=== PATIENT | female | born 1970 | race American Indian/Alaskan Native ===

== ENCOUNTER 2019-03-25 05:56 | Observation (INO) | payer BC, OTHER ==
--- NOTE | 2019-03-18 09:56 | Anesthesia Consultation ---
Anesthesia Consult and Med Hx Date of service: 03/25/19 - Airway Anesthetic Teeth Evaluation: Good ROM Head & Neck: Adequate Mental/Hyoid Distance: Adequate Mallampati Class: Class II Intubation Access Assessment: Good - Pre-Operative Health Status ASA Pre-Surgery Classification: ASA2 Proposed Anesthetic Plan: General Nerve Block: TAP - Pulmonary Hx Smoking: No (Can climb two flights of stairs) Hx Asthma: No - Cardiovascular System Hx Hypertension: Yes (Treated x 2mos) - Central Nervous System Hx Seizures: No Hx Psychiatric Problems: No - Gastrointestinal Hx Gastroesophageal Reflux Disease: No - Endocrine Hx Renal Disease: No Hx Non-Insulin Dependent Diabetes: No - Hematic Hx Anemia: Yes Hx Sickle Cell Disease: No - Other Systems Hx Alcohol Use: Yes (Occas) Hx Cancer: No Hx Obesity: Yes (BMI=38)
[2019-03-18 10:06] LABS: Hemoglobin 11.3 gm/dl (10.1-14.3); Mean Corpuscular HGB Conc 32 % (30-34); Mean Corpuscular Volume 87 fl (79-97); Platelet Count 315 K/mm3 (140-440); Red Blood Count 4.03 M/mm3 (3.65-5.03)
[2019-03-18 10:09] LABS: Red Cell Distribution Width 23.8 % (13.2-15.2)
[2019-03-18 11:15] LABS: Anisocytosis 2+; Hypochromasia 2+; Total Cells Counted 100
[2019-03-18 11:16] LABS: Platelet Estimate Consistent w Auto
[2019-03-25] MEDS ORDERED: VERSED IV NR (06:00)
[2019-03-25] MEDS ORDERED: NEURONTIN PO NR (06:00)
[2019-03-25] MEDS ORDERED: SUBLIMAZE IV PRN (06:00)
[2019-03-25] MEDS ORDERED: LACTATED RINGERS 1,000 ML IV SCH (06:00)
[2019-03-25] MEDS ORDERED: ANCEF/STERILE WATER 2 GM/20 ML IV NR (07:00)
[2019-03-25] MEDS ORDERED: DIPRIVAN 10 MG/ML IV ONE (07:04)
[2019-03-25] MEDS ORDERED: SUBLIMAZE ONE (07:04)
[2019-03-25] MEDS ORDERED: NEOSPORIN GU IR ONE ×2 (07:12→09:02)
[2019-03-25] MEDS ORDERED: MARCAINE-EPI 0.25%-1:200,000 INFILTRATI ONE (07:17)
--- NOTE | 2019-03-25 07:28 | History and Physical Report ---
History of Present Illness Date of examination: 03/25/19 Date of admission: 03/25/2019 Chief complaint: Symptomatic uterine fibroids History of present illness: 48-year-old with a history of symptomatic uterine fibroids that has subsequently caused significant menorrhagia and dysmenorrhea. Medical therapy was attempted on the patient without success. Pelvic ultrasound demonstrated evidence of an enlarged uterus with the largest leiomyoma being 3.0 cm. Of the treatment modalities have been discussed with the patient and she elected to undergo definitive surgical management. Past History Past Medical History: hypertension, other (uterine fibroids) Past Surgical History: other (tubal ligation and hernia repair) ACCOUNTS PAYABLE PAYROLL COORDINATOR History: herpes Social history: - Obstetrical History : 6 Para: 6 Hx # Term Pregnancies: 6 Number of Pregnancies: 0 Spontaneous Abortions: 0 Induced : 0 Number of Living Children: 5 Medications and Allergies Allergies Allergy/AdvReac Type Severity Reaction Status Date / Time No Known Allergies Allergy Unverified 03/17/19 13:36 Home Medications Medication Instructions Recorded Confirmed Last Taken Type Ferrous Sulfate [Feosol 325 MG tab] 325 mg PO DAILY 03/17/19 03/17/19 Unknown History Lisinopril [Zestril TAB] 10 mg PO DAILY 03/17/19 03/17/19 Unknown History Active Meds: Active Medications Celecoxib (Celebrex) 200 mg PO PREOP NR Stop: 03/25/19 23:59 Fentanyl (Sublimaze) 100 mcg IV ONCE PRN PRN Reason: sedation for nerve block Gabapentin (Neurontin) 300 mg PO PREOP NR Stop: 03/25/19 23:59 Lactated Ringer's (Lactated Ringers) 1,000 mls @ 100 mls/hr IV DIRECT OVI Midazolam HCl (Versed) 2 mg IV PREOP NR Stop: 03/25/19 23:59 Review of Systems All systems: negative Genitourinary: vaginal bleeding, pelvic pain - Vital Signs Vital signs: Vital Signs Temp Pulse Resp BP Pulse Ox 99 F 60 18 146/96 100 03/18/19 09:20 03/18/19 09:20 03/18/19 09:20 03/18/19 09:20 03/18/19 09:20 Temp Pulse Resp BP Pulse Ox 99 F 60 18 146/96 100 03/18/19 09:20 03/18/19 09:20 03/18/19 09:20 03/18/19 09:20 03/18/19 09:20 - Physical Exam Breasts: Positive: deferred Cardiovascular: Regular rate Lungs: Positive: Clear to auscultation Results Result Diagrams: 03/18/19 09:30 All other labs normal. Assessment and Plan - Patient Problems (1) Leiomyoma Current Visit: Yes Status: Acute Plan to address problem: Patient is scheduled for robotic hysterectomy (2) Menorrhagia Current Visit: Yes Status: Acute (3) Dysmenorrhea Current Visit: Yes Status: Acute
[2019-03-25] MEDS ORDERED: TORADOL ONE ×2 (08:28→11:17)
[2019-03-25] MEDS ORDERED: ZOFRAN ONE ×2 (08:29→11:17)
[2019-03-25] MEDS ORDERED: DECADRON ONE ×2 (08:29→11:17)
[2019-03-25] MEDS ORDERED: DILAUDID IV PRN (08:32)
--- NOTE | 2019-03-25 08:33 | Anesthesia Day of Surgery ---
Anesthesia Day of Surgery - Day of Surgery Patient Examined: Yes Patient H&P Reviewed: Yes Patient is NPO: Yes
[2019-03-25] MEDS ORDERED: ZEMURON IV ONE ×2 (09:02)
[2019-03-25] MEDS ORDERED: NACL 0.9% IR ONE ×2 (09:03)
[2019-03-25] MEDS ORDERED: DILAUDID ONE ×3 (09:42→14:27)
[2019-03-25] MEDS ORDERED: NARCAN 0.4 MG/1 ML IV PRN (09:44)
[2019-03-25] MEDS ORDERED: AMBIEN PO PRN (09:47)
[2019-03-25] MEDS ORDERED: ZOFRAN IV PRN (09:47)
[2019-03-25] MEDS ORDERED: TYLENOL PO PRN (09:47)
[2019-03-25] MEDS ORDERED: BLOXIVERZ ONE ×2 (09:47→14:27)
[2019-03-25] MEDS ORDERED: ROBINUL ONE (09:47)
[2019-03-25] MEDS ORDERED: PERCOCET 5/325 PO PRN (09:47)
[2019-03-25] MEDS ORDERED: IBUPROFEN PO PRN (09:47)
[2019-03-25] MEDS ORDERED: D5LR 1,000 ML IV SCH (10:00)
[2019-03-25] MEDS ORDERED: MORPHINE PCA 30MG/30ML IV SCH (10:00)
--- NOTE | 2019-03-25 10:01 | Operative Report ---
Operative Report Operative Report: Date of surgery: 03/25/2019 Preoperative diagnoses: Uterine leiomyoma; dysfunctional uterine bleeding Postoperative diagnoses: Same as above Procedure: Robotic hysterectomy and bilateral salpingo-oophorectomy; lysis of adhesions Surgeon: Nell Erickson M.D. Home Office Claim Specialist: Saad Elizabeth Anesthesia: Gen. endotracheal anesthesia Estimated blood loss: 100 mL Pathology: Leiomyoma, uterus, tubes and ovaries Indication: 48-year-old with a history of symptomatic uterine fibroids. The patient elected to undergo definitive surgical management. Procedure: The patient was taken to the operating room and given general endotracheal anesthesia without complication. She is prepped and draped in a normal sterile fashion. A bivalve speculum was placed in the patient's vagina and a single- tooth tenaculum placed on the anterior lip of the cervix. The uterus was sounded with the uterine sound. A [employer] uterine manipulator was placed in the bivalve speculum was then removed. Attention was then turned to the patient's abdomen where a 12 millimeter supra umbilical skin incision was then made. A Veress needle was placed and peritoneal entry was verified water-filled syringe. Insufflation of the peritoneal cavity was performed with CO2 gas. The 12 mm trocar was then placed under direct visualization. An additional 8 mm trocar was placed on the patient's left and right lateral side just opposite of the supraumbilical trocar. An additional 5 mm right lateral trocar was then placed as the accessory port. General survey of the abdomen and pelvis revealed findings of an omental adhesion to the anterior abdominal wall that was obstructing visualization of the camera port and the left lateral trocar. The monopolar scissors were inserted and lysis of adhesions were performed in order to improve visualization. The uterus was enlarged with multiple leiomyomas. The tubes and ovaries were normal in appearance. The Randy Mcknight device was used to close the fascia of the 12 mm incision. The patient was then placed in steep Trendelenburg. The da Chase robot was then engaged. A fenestrated forcep was placed in arm 2 and a vessel sealer was placed in arm 1. The surgeon then transferred to the surgical console. The infundibulopelvic ligament was then isolated on the right. The vessel sealer was used to coagulate the ligament which was then transected. The tube and ovary were transected from the supply. The round ligament was then coagulated and transected also. The vesicouterine peritoneum was then entered from the patient's right side. The uterine vessels were then coagulated with the vessel sealer. The vessels were then transected . Attention was then turned to the patient's left side where the infundibulopelvic ligament and mesosalpinx were again isolated coagulated and transected. The vesical peritoneum was then entered from the left and joined in the midline. Peritoneum was reflected off of the lower uterine segment. Uterine vessels were then coagulated and then transected. The blood supply to the uterus was adequately contained, a posterior colpotomy was made. The V care ring was visualized. Posterior colpotomy was created with the monopolar scissors. The incision was continued circumferentially until anterior colpotomy was made. The cervix and uterus were amputated from the vaginal cuff. A myomectomy was performed in order to remove leiomyomas and decompress the uterine size. The uterus was then removed along with the tubes and ovaries bilaterally through the vagina and a warm laparotomy sponge was placed and maintain the pneumoperitoneum. The vaginal cuff was then closed in a running fashion with V lock suture. Irrigation of the pelvis was performed. Hemoblast was applied to the incision. The skin was then reapproximated with 4-0 Monocryl. The tissue was sent to pathology which included the cervix, uterus, tubes and ovaries. The patient was then successfully extubated. She was then taken to the recovery room in stable condition. All sponge laps and needle counts were correct x2.
[2019-03-25] MEDS ORDERED: LACTATED RINGERS 1,000 ML ONE ×2 (10:29→12:15)
--- NOTE | 2019-03-25 12:23 | Post Anesthesia Evaluation ---
- Post Anesthesia Evaluation Patient Participated: Yes Airway Patent: Yes Stable Respiratory Function: Yes Nausea/Vomiting: No Temp > 96.8F: Yes Pain Manageable: Yes Adequeate Hydration: Yes Anesthesia Complications: No
[2019-03-25] MEDS ORDERED: NEO SYNEPHRINE/NS Syringe(OR USE) IV ONE (14:27)
[2019-03-25] MEDS: TORADOL IV SCH ×2 (17:00→23:10)
[2019-03-26] MEDS: TORADOL IV SCH ×2 (05:56→08:08)
[2019-03-26 07:58] LABS: Hematocrit 28.9 % (30.3-42.9); Hemoglobin 9.5 gm/dl (10.1-14.3)
[2019-03-26 08:25] VITALS: BP 135/63
--- NOTE | 2019-03-26 08:50 | Progress Note ---
Assessment and Plan - Patient Problems (1) Leiomyoma Current Visit: Yes Status: Acute Plan to address problem: patient doing well discharge home (2) Menorrhagia Current Visit: Yes Status: Acute (3) Dysmenorrhea Current Visit: Yes Status: Acute Subjective - Subjective Date of service: 03/26/19 Interval history: Patient without complaints. States she feels hungry. Denies pain. Patient reports: appetite normal, voiding normally, pain well controlled Objective - Vital Signs Latest vital signs: Vital Signs Temp Pulse Pulse Resp BP BP Pulse Ox 03/26/19 07:51 98.1 F 64 18 135/63 03/26/19 06:00 98.1 F 60 20 150/72 100 03/25/19 23:18 97.7 F 71 20 139/72 99 03/25/19 20:24 98.1 F 65 20 147/72 100 03/25/19 20:00 80 16 03/25/19 18:34 18 03/25/19 18:09 97.2 F L 60 18 142/74 03/25/19 13:23 97.6 F 62 18 151/76 98 03/25/19 11:22 12 03/25/19 11:15 97.7 F 61 12 145/80 100 03/25/19 11:04 12 03/25/19 11:00 73 10 L 169/87 99 03/25/19 10:45 66 8 L 156/76 100 03/25/19 10:30 63 8 L 130/70 100 03/25/19 10:25 67 11 L 158/83 100 03/25/19 10:20 64 10 L 155/80 97 03/25/19 10:15 97.5 F L 67 14 160/81 97 Intake and Output 03/25/19 03/26/19 03/26/19 22:59 06:59 14:59 Intake Total 2250 480 Output Total 1500 Balance 750 480 Intake: Oral 850 480 Intake, Free Water 600 Other 800 Output: Urine 1500 Indwelling Catheter 1500 Other: Total, Intake Amount 1650 480 Total, Output Amount 1500 Voiding Method Indwelling Catheter Weight 111 kg - Exam Lungs: Present: Clear to auscultation Abdomen: Present: normal appearance - Labs Labs: Abnormal lab results 03/26/19 Range/Units 07:36 Hgb 9.5 L (10.1-14.3) gm/dl Hct 28.9 L (30.3-42.9) %
--- NOTE | 2019-03-26 08:56 | Discharge Summary ---
Providers - Providers Date of Admission: 03/25/19 09:47 Date of discharge: 03/26/19 Attending physician: BRYN PINTO Primary care physician: JARETT KAY Hospitalization Reason for admission: other (uterine fibroids) Procedure: other (robotic hysterectomy and BSO) Discharge diagnosis: other (uterine fibroids) Hospital course: Patient admitted the day of surgery and underwent a robotic hysterectomy. See op note. Postop uncomplicated Condition at discharge: Good Disposition: [id number] TO HOME OR SELFCARE - Discharge Diagnoses (1) Leiomyoma Status: Acute (2) Menorrhagia Status: Acute (3) Dysmenorrhea Status: Acute Plan - Discharge Medications Prescriptions: Ibuprofen [Motrin] 800 mg PO Q8HR PRN #60 tablet PRN Reason: Pain, Mild (1-3) oxyCODONE /ACETAMINOPHEN [Percocet 5/325] 1 tab PO Q6HR PRN #30 tablet PRN Reason: Pain - Provider Discharge Summary Activity: no sex for 6 weeks, no heavy lifting 4 weeks, no strenuous exercise Diet: routine Instructions: routine Additional instructions: [] Smoking cessation referral if applicable(refer to patient education folder for contact #) [] Refer to [facility]'s [facility] Booklet Call your doctor immediately for: * Fever > 100.5 * Heavy vaginal bleeding ( >1 pad per hour) * Severe persistent headache * Shortness of breath * Reddened, hot, painful area to leg or breast * Drainage or odor from incision. * Keep incision clean and dry at all times and follow doctor's instructions regarding bathing/showering schedule followup with Dr Pham in 4 weeks - Follow up plan
[2019-03-26] MEDS ORDERED: ZESTRIL PO SCH (13:00)
== END 2019-03-26 11:50 | disposition home or self-care (01) ==
LOC: OR 05:56 → OB 09:47
PROVIDERS: ADMIT Obstetrics & Gynecology; ATTEND Obstetrics & Gynecology
DX: D25.9 Leiomyoma of uterus, unspecified (principal); N93.8 Other specified abnormal uterine and vaginal bleeding; I10 Essential (primary) hypertension; N92.0 Excessive and frequent menstruation with regular cycle; N94.6 Dysmenorrhea, unspecified; Z98.51 Tubal ligation status; Z98.890 Other specified postprocedural states
CPT/HCPCS: 36415; 58554; 64450; 81025; 84703; 85007; 85014; 85018; 85025; 86850; 86900; 86901; 88307; 96374; 96375; 96376; A4217; G0378; J0690; J1100; J1170; J1885; J2250; J2270; J2370; J2405; J2704; J2710; J3010; J7120; S2900